=== PATIENT | female | born 1935 | race Caucasian/White ===

== ENCOUNTER 2016-08-28 07:58 | Day surgery (SDC) | payer MEDICARE ==
[~2016-08-28 07:58] MED LIST: LACTATED RINGERS 1,000 ML IV SCH
[2016-08-28] MEDS ORDERED: PHENYLEPHRINE 10 MG/1 ML (1%) VIAL ONE (07:59)
[2016-08-28] MEDS ORDERED: LACTATED RINGERS 1,000 ML ONE (08:02)
[2016-08-28] MEDS ORDERED: IV START KIT ONE (08:02)
[2016-08-28] MEDS ORDERED: LIDOCAINE Viscous 2% 15 ML UDCUP ONE (08:47)
[2016-08-28] MEDS ORDERED: FENTANYL 100 MCG/2 ML VIAL ONE (08:47)
[2016-08-28] MEDS ORDERED: PROPOFOL 20 ML IV ONE (08:47)
[2016-08-28 15:36] LABS: HELICOBACTER PYLORII DETECTION NEGATIVE (NEGATIVE)
--- NOTE | 2016-08-30 13:04 | SURGPATH ---
[facility] [address] [place] [id number] Patient Name: EMIL MOLINA MR#: [id number] : 1935 Gender: F Specimen #: [id number] Collected: 08/28/2016 Received: 08/29/2016 Reported: 08/30/2016 Submitting Phys: DEBORAH PURVIS Copy To Phys: [facility] NISHI MULTANI Clinical History / Pre-Operative Diagnosis: DYSPHAGIA; RULE OUT GASTRITIS Specimen Source / Surgical Procedure Performed: ANTRAL BIOPSY Interpretation: STOMACH, ANTRUM, BIOPSY: - GASTRIC MUCOSA WITH NO DIAGNOSTIC ABNORMALITY Electronically Signed Out Felicity Gan M.D. Gross Description: The specimen is received in a formalin filled container labeled with the patient's name and "antral biopsy". A single tran biopsy is 0.4 cm. Totally embedded in one cassette. Nicki Gordon Microscopic Description: Sections show fragments of gastric mucosa. There is normal mucosal architecture and no significant inflammation. No Helicobacter organisms are identified and there is no intestinal metaplasia or dysplasia. 1: [id number] R47.02
== END 2016-08-28 10:20 | disposition home or self-care (01) ==
LOC: SDC 07:58
PROVIDERS: ATTEND Internal Medicine Gastroenterology
PROC: 0D718ZZ Dilation of Upper Esophagus, Via Natural or Artificial Opening Endoscopic (ICD-10-PCS; principal; 2016-08-28)
PROC: 0DB68ZX Excision of Stomach, Via Natural or Artificial Opening Endoscopic, Diagnostic (ICD-10-PCS; 2016-08-28)
DX: Q39.4 Esophageal web (principal); K29.70 Gastritis, unspecified, without bleeding; K26.9 Duodenal ulcer, unspecified as acute or chronic, without hemorrhage or perforation; K44.9 Diaphragmatic hernia without obstruction or gangrene; I10 Essential (primary) hypertension; I50.9 Heart failure, unspecified; I35.0 Nonrheumatic aortic (valve) stenosis; E78.5 Hyperlipidemia, unspecified; E55.9 Vitamin D deficiency, unspecified; M19.90 Unspecified osteoarthritis, unspecified site
CPT/HCPCS: 43249; 43239; 87081; J3010; J2370; A9270; J7120